=== PATIENT | female | born 1990 | race Caucasian/White ===

== ENCOUNTER 2020-06-05 11:19 | Inpatient (IN) | payer MEDICAID ==
[~2020-06-05] VITALS: Ht 170.2 cm; Wt 136.9 kg
[2020-06-05] VITALS (51 sets, daily range): BP systolic 105–148; BP diastolic 60–96
[2020-06-05] MEDS ORDERED: OXYTOCIN PRE-MIX DRIP 500 ML IV ONE (11:55)
[2020-06-05] MEDS ORDERED: D5 LR IV SOLUTION 1,000 ML IV ONE (11:55)
[2020-06-05] MEDS ORDERED: OXYTOCIN PRE-MIX DRIP 500 ML IV SCH ×2 (12:00→12:45)
[2020-06-05] MEDS: D5 LR IV SOLUTION 1,000 ML IV SCH ×2 (12:08→18:21)
[2020-06-05 12:31] LABS: BASOPHILS % (AUTO) 0 % (0-10); EOSINOPHILS # (AUTO) 0.1 10^3/uL (0.0-0.3); EOSINOPHILS % (AUTO) 1 % (0-10); HEMATOCRIT 36 % (35-52); HEMOGLOBIN 11.6 g/dL (11.5-16.0); LYMPHOCYTES # (AUTO) 1.7 10^3/uL (1.0-4.0); LYMPHOCYTES % (AUTO) 15 % (12-44); MEAN CORPUSCULAR HEMOGLOBIN 28 pg (25-34); MEAN CORPUSCULAR HGB CONC 33 g/dL (32-36); MEAN CORPUSCULAR VOLUME 85 fL (80-99); MEAN PLATELET VOLUME 11.2 fL (9.0-12.2); MONOCYTES # (AUTO) 0.8 10^3/uL (0.0-1.0); MONOCYTES % (AUTO) 7 % (0-12); NEUTROPHILS # (AUTO) 8.6 10^3/uL (1.8-7.8); NEUTROPHILS % (AUTO) 75 % (42-75); PLATELET COUNT 233 10^3/uL (130-400); WHITE BLOOD COUNT 11.4 10^3/uL (4.3-11.0)
--- NOTE | 2020-06-05 12:39 | History & Physical ---
History and Physical Date Seen by Provider: Jun 05, 2020 Time Seen by Provider: 12:37 This patient is a 30-year-old 2 para 1 female patient seen in clinic on this date at 38-1/7 weeks gestation and found to have significant proteinuria and elevated blood pressure consistent with preeclampsia. She has had no other problems with this . She had no problem with her first and had a vaginal delivery. Her GBS culture after 35 weeks gestation with this was negative. She was sent from my office to labor and delivery due to preeclampsia. Allergies are sulfa drugs Medications are vitamins Medical social and surgical history is all per the antepartum record HEENT exam is normal Neck is supple no lymphadenopathy no thyromegaly Abdomen is gravid soft nontender nondistended Extremities show no clubbing or cyanosis. There is no Homans' sign. Pelvic exam now shows a cervix almost 2 cm dilated 80% effaced -1 station vertex presentation with intact membranes that are ruptured artificially and a scalp electrode was placed monitor shows some uterine irritability but no discrete contractions and a normal heart rate pattern Assessment and plan 38+ weeks gestation with preeclampsia and a 2 para 1 who is admitted now for labor induction. We anticipate a vaginal delivery. Lab work is pending for evaluation of the state of her preeclampsia should she demonstrate severe preeclampsia we would add magnesium for seizure prophylaxis Allergies and Home Medications Allergies Uncoded Allergies: SULFA (Allergy, Unknown, 06/05/20) PT'S MOTHER AND DAUGHTER ALLERGIC- UNSURE IF ALLERGY, WANTS LISTED Patient Home Medication List Home Medication List Reviewed: Yes CELIA SCHULZ MD Jun 05, 2020 12:39
[2020-06-05 12:45] LABS: ALBUMIN 3.4 GM/DL (3.2-4.5); ALKALINE PHOSPHATASE 146 U/L (40-136); BILIRUBIN,TOTAL 0.4 MG/DL (0.1-1.0); BUN/CREATININE RATIO 14; CALCIUM 8.7 MG/DL (8.5-10.1); CARBON DIOXIDE 18 MMOL/L (21-32); CHLORIDE 105 MMOL/L (98-107); CREATININE SERUM 0.66 MG/DL (0.60-1.30); GFR ESTIMATED > 60; GLUCOSE 66 MG/DL (70-105); SODIUM 135 MMOL/L (135-145); TOTAL PROTEIN 7.1 GM/DL (6.4-8.2); URIC ACID 5.2 MG/DL (2.6-7.2)
[2020-06-05] MEDS ORDERED: D5 LR IV SOLUTION 1,000 ML IV SCH (12:45)
[2020-06-05 13:15] LABS: ALANINE AMINOTRANSFERASE 15 U/L (0-55)
[2020-06-05] MEDS ORDERED: CATHETER FLUSH 10 ML SYR IV SCH (14:00)
[2020-06-05] MEDS ORDERED: fentaNYL INJ 100 MCG/2 ML AMP ONE (16:59)
[2020-06-05] MEDS ORDERED: fentaNYL 2 mcg/ml BUPIVA 0.125 100 ML ONE (17:00)
[2020-06-05] MEDS ORDERED: BUPIVACAINE 0.25% 30 ML (SENSORCAINE) VIAL ONE (17:36)
[2020-06-05] MEDS ORDERED: ONDANSETRON 4 MG/2 ML (SDV) Z0FRAN IV PRN (17:45)
[2020-06-05] MEDS ORDERED: NALOXONE 0.4 MG/ML 1 ML (NARCAN) VIAL IV PRN (17:45)
[2020-06-05] MEDS ORDERED: EPIDURAL (fentaNYL 2 MCG/ML BUPIVA 0.125%)100 ML BAG EPI PRN (17:45)
[2020-06-05] MEDS ORDERED: LACTATED RINGERS 1,000 ML IV ONE ×2 (17:45)
[2020-06-05] MEDS ORDERED: fentaNYL INJ 100 MCG/2 ML AMP INJ ONE (17:45)
[2020-06-05] MEDS ORDERED: LIDOCAINE/EPI 2% 1:200,00 (XYLOCAINE) 20 ML VIAL ONE (19:02)
[2020-06-06 00:45] VITALS: BP 158/74
[2020-06-06] MEDS ORDERED: IBUPROFEN 800 MG (MOTRIN) TAB PO ONE (00:58)
[2020-06-06] MEDS: IBUPROFEN 800 MG (MOTRIN) TAB PO SCH ×5 (01:09→23:07)
[2020-06-06] MEDS ORDERED: KETOROLAC 30 MG/ML VIAL IVP SCH (01:15)
[2020-06-06] MEDS ORDERED: BENZOCAINE/MENTHOL (DERMOPLAST) 56 ML CAN TP PRN ×2 (01:15→13:45)
[2020-06-06] MEDS ORDERED: oxyCODONE/APAP 5/325MG (PERCOCET 5) TABLET PO PRN (01:15)
[2020-06-06] MEDS ORDERED: OXYTOCIN PRE-MIX DRIP 500 ML IV SCH (01:15)
[2020-06-06] MEDS ORDERED: TETANUS,DIPTH,PERTUSS P/F (BOOSTRIX) 0.5 ML VIAL IM ONE (01:15)
[2020-06-06] MEDS ORDERED: MEASLES,MUMPS,RUBELLA 1 EA INJ SC ONE (01:15)
[2020-06-06] MEDS ORDERED: ONDANSETRON 4 MG/2 ML (SDV) Z0FRAN IVP PRN (01:15)
[2020-06-06 04:20] VITALS: BP 106/61
[2020-06-06 08:00] VITALS: BP 123/58
[2020-06-06] MEDS ORDERED: WITCH HAZEL(TUCKS) 40 EA JAR ONE (08:11)
[2020-06-06] MEDS ORDERED: WITCH HAZEL(TUCKS) 40 EA JAR TOP PRN (08:15)
--- NOTE | 2020-06-06 09:08 | Progress Note ---
Standard Progress Note Progress Notes/Assess & Plan Date Seen by a Provider: Jun 06, 2020 Time Seen by a Provider: 09:08 Progress/Assessment & Plan This patient is without complaint. She is ambulating, voiding, tolerating oral intake well and has good pain control. Vital Signs 06/05/20 06/06/20 20:40 04:20 Temp 36.5 Pulse 72 Resp 18 B/P (MAP) 106/61 (76) Pulse Ox 98 O2 Delivery Room Air O2 Flow Rate 0.00 Vital signs are stable. Patient is afebrile. Fundus is firm below the umbilicus and nontender. Extremities show no clubbing cyanosis. There is no Homans' sign. Assessment and plan day #1 status post term spontaneous vaginal labor at 38+ weeks gestation. Patient is doing well and will have routine convalescent care CELIA SCHULZ MD Jun 06, 2020 09:08
[2020-06-06] MEDS ORDERED: OXYC1TAB87 PO (09:10)
[2020-06-06] MEDS ORDERED: IBUP-1780 PO (09:10)
[2020-06-06] MEDS ORDERED: DCS100C PO (09:10)
--- NOTE | 2020-06-06 09:10 | Discharge Inst-Surgical ---
Discharge Inst-Surgical Depart Medication/Instructions New, Converted or Re-Newed RX: RX on Chart Consults/Follow Up Patient Instructions: As directed Orders & Referrals Follow Up Appt: Call to make follow up appt. for patient in 4 weeks. Activity Per routine post vaginal delivery instructions. Please call in RX to patient pharmacy. Diet as tolerated Patient may shower or tub bathe as desired. Activity Activity as Tolerated: No Diet Discharge Diet: No Restrictions CELIA SCHULZ MD Jun 06, 2020 09:10
[2020-06-06] MEDS: DOCUSATE SODIUM 100 MG (COLACE) CAP PO SCH ×2 (09:23→20:12)
[2020-06-06 12:15] VITALS: BP 129/58
--- NOTE | 2020-06-06 14:03 | OPERATIVE REPORT ---
DATE OF SERVICE: 06/05/2020 DELIVERY NOTE The patient delivered by term spontaneous vaginal delivery at 38 weeks gestation, a viable female with Apgars of 9 and 9 at 1 and 5 minutes respectively, weight of 7 pounds 1 ounce, time of 2039 and a cord blood pH that is pending. The was delivered over a midline episiotomy that was performed when the baby was . Mom could not push the baby out. Heart rate was dropping into the 40s. Then, the episiotomy was performed to shorten the second stage of labor due to decreased heart rate. The delivered fairly promptly after the episiotomy. The infant was bulb suctioned on delivery of the head and again on completion of delivery. The umbilical cord was doubly clamped. The umbilical cord was cut and the passed to mom's abdomen. Cord bloods were obtained. The placenta delivered spontaneously [place]. It was normal with a 3-vessel cord. The cervix, vagina, rectum, and perineum were examined and found intact, except for the midline episiotomy that was repaired with a single suture of 3-0 Vicryl Rapide in the usual manner without difficulty to good hemostasis. Sponge and needle counts were correct on completion of the delivery and repair. Blood loss was around 300 mL. The patient tolerated the delivery and the repair well and remained in the LDR for recovery. The baby remained with the mom. Job ID: [id number] DocumentID: [id number] Dictated Date: 06/06/2020 09:03:14 Oiling Machine Operator Date: 06/06/2020 14:03:08 Dictated By: CELIA SCHULZ MD
[2020-06-06 17:15] VITALS: BP 117/69
[2020-06-06 23:19] VITALS: BP 116/53
[2020-06-07] MEDS: IBUPROFEN 800 MG (MOTRIN) TAB PO SCH (05:26)
[2020-06-07 05:29] VITALS: BP 108/54
--- NOTE | 2020-06-07 08:17 | Progress Note ---
Standard Progress Note Progress Notes/Assess & Plan Date Seen by a Provider: Jun 07, 2020 Time Seen by a Provider: 08:16 Progress/Assessment & Plan This patient is without complaint. She is ambulating, voiding, tolerating oral intake well and has good pain control. Vital Signs 06/05/20 06/06/20 20:40 04:20 Temp 36.5 Pulse 72 Resp 18 B/P (MAP) 106/61 (76) Pulse Ox 98 O2 Delivery Room Air O2 Flow Rate 0.00 Vital signs are stable. Patient is afebrile. Fundus is firm below the umbilicus and nontender. Extremities show no clubbing cyanosis. There is no Homans' sign. Assessment and plan day #1 status post term spontaneous vaginal labor at 38+ weeks gestation. Patient is doing well and will have routine convalescent care Without complaint. She is ambulating, voiding, tolerating oral intake well and has good pain control. Vital Signs 06/05/20 06/07/20 20:40 05:29 Temp 36.3 Pulse 77 Resp 16 B/P (MAP) 108/54 (72) Pulse Ox 98 O2 Delivery Room Air O2 Flow Rate 0.00 Fundus is firm below the umbilicus and nontender. Extremities show no clubbing cyanosis. There is no Homans' sign. Assessment and plan post day 2 post term spontaneous vaginal delivery doing well. Plan is for discharge home Final Diagnosis 38-week spontaneous vaginal delivery CELIA SCHULZ MD Jun 07, 2020 08:17
[2020-06-07] MEDS: DOCUSATE SODIUM 100 MG (COLACE) CAP PO SCH (08:53)
[2020-06-07 09:00] VITALS: BP 129/59
[2020-06-07 11:10] VITALS: BP 129/59
== END 2020-06-07 11:10 | disposition home or self-care (01) | DRG 807 ==
LOC: LDRP 11:19
PROVIDERS: ADMIT Obstetrics & Gynecology; ATTEND Obstetrics & Gynecology
PROC: 10E0XZZ Delivery of Products of Conception, External Approach (ICD-10-PCS; principal; 2020-06-06)
PROC: 0W8NXZZ Division of Female Perineum, External Approach (ICD-10-PCS; 2020-06-06)
DX: O80 Encounter for full-term uncomplicated delivery (principal); Z37.0 Single live birth; Z3A.38 38 weeks gestation of pregnancy
CPT/HCPCS: 36415; 80053; 82570; 83615; 84156; 84550; 85025; 86780; 86850; 86900; 86901